=== PATIENT | female | born 1955 | race Caucasian/White ===

== ENCOUNTER 2021-04-08 02:09 | Inpatient (IN) | payer BC ==
[~2021-04-08] VITALS: Ht 154.9 cm; Wt 121.6 kg
--- NOTE | 2021-04-08 02:33 | NUR ---
PT BIB EMS FROM [facility]. PT FELL AT HOME AND HAS RIGHT TIBIA FX AND LEFT SHOULDER FX. AND TROPS WERE ELEVATED AT 0.19- PT STARTED ON HEPARIN DRIP. 2,000 UNITS PER HOUR WITH 5,000 UNIT BOLUS GIVEN. PT ALSO GIVEN 40 OF LASIX AND 1 LITER NS, AND 325 ASPRIN. HEPARIN DRIP RESUMED AT 2000 UNITS PER HOUR, OK PER ERP, AND EKG AT BEDSIDE
--- NOTE | 2021-04-08 02:45 | NUR ---
PER ERP, HOLD HEPARIN DRIP AT THIS TIME.
--- NOTE | 2021-04-08 03:01 | NUR ---
Report received from ALLISON Salgado. This RN to assume care.
--- NOTE | 2021-04-08 03:15 | NUR ---
Patient asking for ; states he might be in the waiting room. Attempted to call him in the waiting room but no answer.
[2021-04-08 03:26] LABS: TROPONIN I 0.109 ng/mL (0.000-0.045)
--- NOTE | 2021-04-08 04:00 | NUR ---
Patient sleeping in gurney. Respirations even and unlabored.
--- NOTE | 2021-04-08 06:01 | NUR ---
Bill - [phone] Spoke with patient's , Roc, over the phone. He states he is leaving [place] right now and will be here in a couple hours. Patient notified.
[2021-04-08] MEDS ORDERED: DOCUSATE 100 MG CAPSULE PO PRN (06:30)
[2021-04-08] MEDS ORDERED: ONDANSETRON 2MG/ML, 2ML IVPush PRN (06:30)
[2021-04-08] MEDS ORDERED: LORazepam 2 MG/ML, 1ML IVPush PRN (06:30)
[2021-04-08] MEDS ORDERED: TEMAZEPAM 15 MG CAPSULE PO PRN (06:30)
[2021-04-08] MEDS ORDERED: ACETAMINOPHEN 325 MG TABLET PO PRN (06:30)
[2021-04-08] MEDS ORDERED: POLYETHYLENE GLYCOL 17 GM PACKET PO PRN (06:30)
[2021-04-08] MEDS ORDERED: BISACODYL 10 MG SUPP PR PRN (06:30)
[2021-04-08] MEDS ORDERED: MORPHINE SULFATE 4 MG/ML, 1ML IVPush PRN (06:30)
[2021-04-08] MEDS: NYSTATIN TOPICAL POWDER 15GM TP SCH ×4 (06:30→20:23)
[2021-04-08] MEDS ORDERED: hydrALAzine 20 MG/ML, 1ML IVPush PRN (06:30)
[2021-04-08] MEDS ORDERED: MELATONIN 5 MG TABLET PO PRN (06:30)
[2021-04-08 06:46] LABS: CHOLESTEROL, TOTAL 50 mg/dL (140-239); TRIGLYCERIDES 94 mg/dL (50-200); VLDL CHOLESTEROL 19 mg/dL (0-25)
[2021-04-08 06:56] LABS: CHOL/HDL RATIO 3.1; HDL CHOL % 32 % (28-40); HDL CHOLESTEROL (DIRECT) 16 mg/dL (40-60); LDL CHOLESTEROL,CALCULATED 15 mg/dL (54-169); LDL/HDL RATIO 0.9 (0.5-3.0); TROPONIN I 0.097 ng/mL (0.000-0.045)
[2021-04-08 07:00] LABS: BASOPHILS % (AUTO) 1 % (0-1); EOSINOPHILS % (AUTO) 0 % (1-7); LYMPHOCYTES % (AUTO) 13 % (22-44); MEAN CORPUSCULAR HEMOGLOBIN 20.5 pg (27.0-34.8); MEAN PLATELET VOLUME 8.7 fL (7.4-10.4); MONOCYTES % (AUTO) 8 % (2-9); NEUTROPHILS % (AUTO) 78 % (42-75); PLATELET COUNT 411 x10^3/uL (130-400); RED BLOOD COUNT 4.14 x10^6/uL (3.82-5.3); RED CELL DISTRIBUTION WIDTH 25.7 % (9.6-15.2)
--- NOTE | 2021-04-08 07:05 | NUR ---
Report given to ALLISON Carver. Patient to be transferred to room 510-2.
[2021-04-08 07:13] LABS: ALANINE AMINOTRANSFERASE 145 U/L (12-78); ALBUMIN 2.8 g/dL (3.4-5.0); ANION GAP 10 mmol/L (5-15); CALCIUM 8.7 mg/dL (8.5-10.1); CHLORIDE 105 mmol/L (98-107); CREATININE 1.21 mg/dL (0.55-1.02); IRON LEVEL 16 mcg/dL (50-170)
[2021-04-08 07:16] LABS: % IRON SATURATION 5 % (20-55); ALKALINE PHOSPHATASE 208 U/L (45-117); BILIRUBIN,TOTAL 1.5 mg/dL (0.2-1.0); TOTAL IRON BINDING CAPACITY 296 mcg/dL (250-450); TOTAL PROTEIN 6.4 g/dL (6.4-8.2)
[2021-04-08 07:25] LABS: ACANTHOCYTES 2+; ANISOCYTOSIS 2+; ECHINOCYTES 1+; HYPOCHROMIA 1+; MICROCYTOSIS 2+; POLYCHROMASIA 1+
[2021-04-08 07:26] LABS: <PLATELET ESTIMATE> INCREASED; <PLT MORPHOLOGY> NORMAL PLT MORPH; SCHISTOCYTES 1+
[2021-04-08 07:27] LABS: OVALOCYTES 1+
[2021-04-08 07:45] VITALS: BP 174/100
[2021-04-08] MEDS ORDERED: metFORMIN 500 MG TABLET PO SCH (08:00)
[2021-04-08] MEDS: INSULIN LISPRO 100 UNITS/ML, PEN SQ-INSULIN SCH ×4 (08:13→20:22)
[2021-04-08 08:16] VITALS: BP 174/100
[2021-04-08] MEDS ORDERED: FAMOTIDINE 20 MG TABLET PO SCH (09:00)
[2021-04-08] MEDS ORDERED: GABAPENTIN 300 MG CAPSULE PO SCH ×2 (09:00→12:00)
[2021-04-08] MEDS ORDERED: FLUOXETINE HCL 20 MG CAPSULE PO SCH ×3 (09:00→12:59)
[2021-04-08] MEDS ORDERED: LISINOPRIL 20 MG TABLET PO SCH (09:00)
[2021-04-08] MEDS ORDERED: FAMOTIDINE 40 MG TABLET ONE (10:21)
[2021-04-08] MEDS: HEPARIN 5,000 UNITS/ML, 1ML SQ SCH ×3 (10:31→22:07)
[2021-04-08] MEDS ORDERED: ATOR-2 PO (10:57)
[2021-04-08] MEDS ORDERED: NEBI5TAB2 PO (10:57)
[2021-04-08] MEDS ORDERED: GABA-826 PO (10:57)
[2021-04-08] MEDS ORDERED: LISI40TA9 PO (10:57)
[2021-04-08] MEDS ORDERED: FURO20TA3 PO (10:57)
[2021-04-08] MEDS ORDERED: METH-640 PO (10:57)
[2021-04-08] MEDS ORDERED: FLUO20TA25 PO (10:57)
[2021-04-08] MEDS ORDERED: ICOS1CAP PO (10:57)
[2021-04-08] MEDS ORDERED: METF500T17 PO (10:57)
[2021-04-08] MEDS ORDERED: OMEP20TA9 PO (10:57)
[2021-04-08] MEDS ORDERED: OMEPRAZOLE 20 MG CAPSULE.DR PO SCH (12:00)
[2021-04-08] MEDS ORDERED: METHOCARBAMOL 750 MG TABLET PO PRN ×2 (12:00→12:55)
[2021-04-08] MEDS ORDERED: NEBIVOLOL HCL 5 MG TABLET PO SCH (12:00)
[2021-04-08] MEDS ORDERED: FUROSEMIDE 20 MG TABLET PO SCH ×2 (12:00→12:54)
[2021-04-08] MEDS ORDERED: LISINOPRIL 40 MG TABLET PO SCH ×2 (12:00→12:50)
[2021-04-08] MEDS: OXYcodone IR 5MG TABLET PO PRN ×2 (12:10→18:25)
[2021-04-08] MEDS ORDERED: OMEPRAZOLE 40 MG PO SCH (13:00)
[2021-04-08] MEDS ORDERED: PROZAC 20 MG PO SCH (13:00)
[2021-04-08] MEDS ORDERED: FUROSEMIDE 20 MG PO SCH (13:00)
[2021-04-08] MEDS ORDERED: METHOCARBAMOL 750 MG PO PRN (13:00)
[2021-04-08] MEDS: ASPIRIN 81 MG TABLET CHEW PO SCH (13:21)
[2021-04-08] MEDS: BYSTOLIC 10 MG PO SCH (13:22)
[2021-04-08] MEDS: Gabapentin 600 MG TABLET PO SCH ×2 (13:22→20:21)
[2021-04-08] MEDS: FUROSEMIDE 20 MG TABLET PO SCH (13:33)
[2021-04-08] MEDS: LISINOPRIL 40 MG TABLET PO SCH (13:33)
[2021-04-08] MEDS: FLUOXETINE HCL 20 MG CAPSULE PO SCH (13:33)
[2021-04-08 13:35] VITALS: BP 131/87
[2021-04-08 14:27] LABS: TROPONIN I 0.089 ng/mL (0.000-0.045)
[2021-04-08] MEDS: IRON SUCROSE COMPLEX 100MG/5ML IV SCH (18:27)
[2021-04-08] MEDS: ATORVASTATIN 80 MG TABLET PO SCH (20:21)
[2021-04-08] MEDS: INSULIN GLARGINE 100 UNITS/ML, PEN SQ-INSULIN SCH (20:22)
[2021-04-08] MEDS ORDERED: LIPITOR 80 MG PO SCH (21:00)
[2021-04-08 21:23] VITALS: BP 177/98
[2021-04-08 21:40] VITALS: BP 150/95
[2021-04-08 22:45] LABS: TROPONIN I 0.076 ng/mL (0.000-0.045)
[2021-04-09 01:36] VITALS: BP 171/90
[2021-04-09 01:55] VITALS: BP 155/87
[2021-04-09 04:19] LABS: MEAN CORPUSCULAR HEMOGLOBIN 20.9 pg (27.0-34.8); MEAN CORPUSCULAR HGB CONC 30.4 g/dL (32.4-35.8); MEAN PLATELET VOLUME 8.7 fL (7.4-10.4); PLATELET COUNT 397 x10^3/uL (130-400); RED BLOOD COUNT 4.09 x10^6/uL (3.82-5.3); RED CELL DISTRIBUTION WIDTH 25.6 % (9.6-15.2)
[2021-04-09 04:28] LABS: ANION GAP 6 mmol/L (5-15); CALCIUM 8.6 mg/dL (8.5-10.1); CHLORIDE 104 mmol/L (98-107); CREATININE 1.12 mg/dL (0.55-1.02)
[2021-04-09 05:49] LABS: ACANTHOCYTES 2+; ANISOCYTOSIS 2+; ECHINOCYTES 1+; HYPOCHROMIA 1+; LYMPH#(MANUAL) 0.82 x10^3/uL (1-3.4); LYMPHS% (MANUAL) 8 % (22-44); MICROCYTOSIS 2+; MONOS#(MANUAL) 0.21 x10^3/uL (0.3-2.7); MONOS% (MANUAL) 2 % (2-9); OVALOCYTES 1+; POLYCHROMASIA 1+; SEG#(MANUAL) 9.27 x10^3/uL (1.8-6.8); SEGS% (MANUAL) 90 % (42-75)
[2021-04-09 05:50] LABS: <PLATELET ESTIMATE> ADEQUATE; <PLT MORPHOLOGY> NORMAL PLT MORPH; SCHISTOCYTES 1+; TEAR DROPS 1+
[2021-04-09] MEDS: NYSTATIN TOPICAL POWDER 15GM TP SCH ×4 (06:00→21:26)
[2021-04-09] MEDS: HEPARIN 5,000 UNITS/ML, 1ML SQ SCH ×3 (06:02→21:24)
[2021-04-09] MEDS ORDERED: REGADENOSON 0.4 MG/5 ML SYRINGE ONE (08:09)
[2021-04-09] MEDS: INSULIN LISPRO 100 UNITS/ML, PEN SQ-INSULIN SCH ×4 (08:27→21:31)
[2021-04-09 09:00] VITALS: BP 131/77
[2021-04-09] MEDS: IRON SUCROSE COMPLEX 100MG/5ML IV SCH (11:45)
[2021-04-09] MEDS: ASPIRIN 81 MG TABLET CHEW PO SCH (11:45)
[2021-04-09] MEDS: LISINOPRIL 40 MG TABLET PO SCH (11:51)
[2021-04-09] MEDS: Gabapentin 600 MG TABLET PO SCH ×3 (11:51→21:00)
[2021-04-09] MEDS: FUROSEMIDE 20 MG TABLET PO SCH (11:51)
[2021-04-09] MEDS: OMEPRAZOLE 20 MG CAPSULE.DR PO SCH (11:51)
[2021-04-09] MEDS: BYSTOLIC 10 MG PO SCH (11:51)
[2021-04-09] MEDS: FLUOXETINE HCL 20 MG CAPSULE PO SCH (11:52)
[2021-04-09] MEDS: OXYcodone IR 5MG TABLET PO PRN ×2 (11:57→18:24)
[2021-04-09 13:56] VITALS: BP 134/73
[2021-04-09] MEDS ORDERED: POTASSIUM CHLORIDE 20 MEQ TAB.ER.PRT PO SCH (17:00)
[2021-04-09] MEDS: FUROSEMIDE 20 MG/2 ML IV SCH (18:13)
[2021-04-09 19:35] VITALS: BP 138/83
[2021-04-09] MEDS: INSULIN GLARGINE 100 UNITS/ML, PEN SQ-INSULIN SCH (21:36)
[2021-04-09] MEDS: ATORVASTATIN 80 MG TABLET PO SCH (21:36)
[2021-04-10 01:30] VITALS: BP 132/82
[2021-04-10 05:24] LABS: BASOPHILS % (AUTO) 1 % (0-1); EOSINOPHILS % (AUTO) 1 % (1-7); LYMPHOCYTES % (AUTO) 15 % (22-44); MEAN CORPUSCULAR HEMOGLOBIN 21.1 pg (27.0-34.8); MEAN CORPUSCULAR HGB CONC 30.7 g/dL (32.4-35.8); MEAN PLATELET VOLUME 8.7 fL (7.4-10.4); MONOCYTES % (AUTO) 11 % (2-9); NEUTROPHILS % (AUTO) 72 % (42-75); PLATELET COUNT 382 x10^3/uL (130-400)
[2021-04-10 05:26] LABS: CHLORIDE 103 mmol/L (98-107)
[2021-04-10] MEDS: NYSTATIN TOPICAL POWDER 15GM TP SCH ×4 (05:28→22:20)
[2021-04-10 05:33] LABS: ANION GAP 4 mmol/L (5-15); CALCIUM 8.4 mg/dL (8.5-10.1); CREATINE KINASE, TOTAL 77 U/L (26-192); CREATININE 1.11 mg/dL (0.55-1.02)
[2021-04-10] MEDS: HEPARIN 5,000 UNITS/ML, 1ML SQ SCH ×3 (06:35→22:14)
[2021-04-10 06:58] VITALS: BP 140/84
[2021-04-10] MEDS: INSULIN LISPRO 100 UNITS/ML, PEN SQ-INSULIN SCH ×4 (07:50→21:00)
[2021-04-10] MEDS: POTASSIUM CHLORIDE 20 MEQ TAB.ER.PRT PO SCH ×2 (10:13→17:35)
[2021-04-10] MEDS: FUROSEMIDE 20 MG/2 ML IV SCH ×2 (10:13→17:35)
[2021-04-10] MEDS: OXYcodone IR 5MG TABLET PO PRN ×3 (10:13→22:14)
[2021-04-10] MEDS: IRON SUCROSE COMPLEX 100MG/5ML IV SCH (10:14)
[2021-04-10] MEDS: Gabapentin 600 MG TABLET PO SCH ×3 (10:18→21:00)
[2021-04-10] MEDS: LISINOPRIL 40 MG TABLET PO SCH (10:18)
[2021-04-10] MEDS: OMEPRAZOLE 20 MG CAPSULE.DR PO SCH (10:18)
[2021-04-10] MEDS: BYSTOLIC 10 MG PO SCH (10:18)
[2021-04-10] MEDS: FLUOXETINE HCL 20 MG CAPSULE PO SCH (10:18)
[2021-04-10] MEDS: ASPIRIN 81 MG TABLET CHEW PO SCH (10:18)
[2021-04-10 12:41] VITALS: BP 125/77
[2021-04-10 19:32] VITALS: BP 114/75
[2021-04-10] MEDS: INSULIN GLARGINE 100 UNITS/ML, PEN SQ-INSULIN SCH (22:13)
[2021-04-10] MEDS: ATORVASTATIN 80 MG TABLET PO SCH (22:13)
[2021-04-11 00:22] VITALS: BP 125/80
[2021-04-11] MEDS: HEPARIN 5,000 UNITS/ML, 1ML SQ SCH ×3 (05:39→20:56)
[2021-04-11] MEDS: NYSTATIN TOPICAL POWDER 15GM TP SCH ×4 (05:40→20:56)
[2021-04-11 06:05] LABS: BASOPHILS % (AUTO) 1 % (0-1); EOSINOPHILS % (AUTO) 1 % (1-7); LYMPHOCYTES % (AUTO) 20 % (22-44); MEAN CORPUSCULAR HEMOGLOBIN 21.2 pg (27.0-34.8); MEAN CORPUSCULAR HGB CONC 30.4 g/dL (32.4-35.8); MEAN PLATELET VOLUME 8.7 fL (7.4-10.4); MONOCYTES % (AUTO) 11 % (2-9); NEUTROPHILS % (AUTO) 67 % (42-75); PLATELET COUNT 404 x10^3/uL (130-400); RED BLOOD COUNT 3.95 x10^6/uL (3.82-5.3); RED CELL DISTRIBUTION WIDTH 25.9 % (9.6-15.2)
[2021-04-11 06:08] LABS: CALCIUM 8.4 mg/dL (8.5-10.1); CHLORIDE 103 mmol/L (98-107)
[2021-04-11 06:14] LABS: ALANINE AMINOTRANSFERASE 107 U/L (12-78); ALBUMIN 2.7 g/dL (3.4-5.0); ALKALINE PHOSPHATASE 324 U/L (45-117); ANION GAP 4 mmol/L (5-15); BILIRUBIN,TOTAL 1.9 mg/dL (0.2-1.0); CREATININE 1.14 mg/dL (0.55-1.02); TOTAL PROTEIN 6.3 g/dL (6.4-8.2)
[2021-04-11] MEDS: INSULIN LISPRO 100 UNITS/ML, PEN SQ-INSULIN SCH ×4 (07:00→21:00)
[2021-04-11 07:27] VITALS: BP 125/74
[2021-04-11] MEDS: ASPIRIN 81 MG TABLET CHEW PO SCH (08:33)
[2021-04-11] MEDS: OXYcodone IR 5MG TABLET PO PRN ×2 (08:33→20:56)
[2021-04-11] MEDS: POTASSIUM CHLORIDE 20 MEQ TAB.ER.PRT PO SCH ×2 (08:33→16:29)
[2021-04-11] MEDS: Gabapentin 600 MG TABLET PO SCH ×3 (08:34→20:56)
[2021-04-11] MEDS: OMEPRAZOLE 20 MG CAPSULE.DR PO SCH (08:34)
[2021-04-11] MEDS: BYSTOLIC 10 MG PO SCH (08:34)
[2021-04-11] MEDS: FLUOXETINE HCL 20 MG CAPSULE PO SCH (08:34)
[2021-04-11] MEDS: LISINOPRIL 40 MG TABLET PO SCH (08:34)
[2021-04-11] MEDS: FUROSEMIDE 40 MG/4 ML IV SCH ×2 (08:35→16:25)
[2021-04-11] MEDS: ALBUMIN HUMAN 25% 100 ML IV SCH ×2 (09:23→16:25)
[2021-04-11 13:30] VITALS: BP 132/75
[2021-04-11 18:40] VITALS: BP_SYST 137; BP_SYST 94; BP_DIAS 59; BP_DIAS 81
[2021-04-11] MEDS: ATORVASTATIN 80 MG TABLET PO SCH (20:55)
[2021-04-11] MEDS: INSULIN GLARGINE 100 UNITS/ML, PEN SQ-INSULIN SCH (21:21)
[2021-04-12 01:21] VITALS: BP 147/79
[2021-04-12 05:08] LABS: MEAN CORPUSCULAR HEMOGLOBIN 21.9 pg (27.0-34.8); MEAN CORPUSCULAR HGB CONC 30.5 g/dL (32.4-35.8); MEAN PLATELET VOLUME 8.6 fL (7.4-10.4); PLATELET COUNT 395 x10^3/uL (130-400); RED BLOOD COUNT 3.84 x10^6/uL (3.82-5.3); RED CELL DISTRIBUTION WIDTH 25.7 % (9.6-15.2)
[2021-04-12 05:20] LABS: ALANINE AMINOTRANSFERASE 80 U/L (12-78); ALBUMIN 3.3 g/dL (3.4-5.0); ANION GAP 6 mmol/L (5-15); CALCIUM 8.6 mg/dL (8.5-10.1); CHLORIDE 101 mmol/L (98-107)
[2021-04-12 05:22] LABS: ALKALINE PHOSPHATASE 340 U/L (45-117); BILIRUBIN,TOTAL 2.4 mg/dL (0.2-1.0); CREATININE 1.18 mg/dL (0.55-1.02); TOTAL PROTEIN 6.8 g/dL (6.4-8.2)
[2021-04-12] MEDS: NYSTATIN TOPICAL POWDER 15GM TP SCH ×4 (05:29→21:14)
[2021-04-12] MEDS: HEPARIN 5,000 UNITS/ML, 1ML SQ SCH ×2 (05:29→14:44)
[2021-04-12 06:10] LABS: ANISOCYTOSIS 1+; EOS#(MANUAL) 0.19 x10^3/uL (0.0-0.4); EOS% (MANUAL) 2 % (1-7); HYPOCHROMIA 1+; LYMPH#(MANUAL) 1.79 x10^3/uL (1-3.4); LYMPHS% (MANUAL) 19 % (22-44); MICROCYTOSIS 1+; MONOS#(MANUAL) 0.38 x10^3/uL (0.3-2.7); MONOS% (MANUAL) 4 % (2-9); POLYCHROMASIA 1+; SEG#(MANUAL) 7.05 x10^3/uL (1.8-6.8); SEGS% (MANUAL) 75 % (42-75)
[2021-04-12 06:11] LABS: ECHINOCYTES 1+; OVALOCYTES 1+; SCHISTOCYTES 1+; TEAR DROPS 1+
[2021-04-12 06:12] LABS: <PLATELET ESTIMATE> ADEQUATE; <PLT MORPHOLOGY> NORMAL PLT MORPH; ACANTHOCYTES 1+
[2021-04-12] MEDS: INSULIN LISPRO 100 UNITS/ML, PEN SQ-INSULIN SCH ×4 (06:59→21:00)
[2021-04-12 07:50] VITALS: BP 156/87
[2021-04-12] MEDS: FUROSEMIDE 40 MG/4 ML IV SCH ×2 (08:09→16:16)
[2021-04-12] MEDS: BYSTOLIC 10 MG PO SCH (08:09)
[2021-04-12] MEDS: POTASSIUM CHLORIDE 20 MEQ TAB.ER.PRT PO SCH ×2 (08:09→16:16)
[2021-04-12] MEDS: ASPIRIN 81 MG TABLET CHEW PO SCH (08:09)
[2021-04-12] MEDS: OMEPRAZOLE 20 MG CAPSULE.DR PO SCH (08:10)
[2021-04-12] MEDS: Gabapentin 600 MG TABLET PO SCH ×3 (08:10→21:00)
[2021-04-12] MEDS: FLUOXETINE HCL 20 MG CAPSULE PO SCH (08:10)
[2021-04-12] MEDS: LISINOPRIL 40 MG TABLET PO SCH (08:10)
[2021-04-12] MEDS: OXYcodone IR 5MG TABLET PO PRN ×3 (08:19→21:12)
[2021-04-12 12:53] VITALS: BP 135/78
[2021-04-12 20:34] VITALS: BP 127/72
[2021-04-12] MEDS: ATORVASTATIN 80 MG TABLET PO SCH (21:00)
[2021-04-12] MEDS: INSULIN GLARGINE 100 UNITS/ML, PEN SQ-INSULIN SCH (21:15)
[2021-04-13] MEDS: HEPARIN 5,000 UNITS/ML, 1ML SQ SCH ×3 (00:26→16:24)
[2021-04-13 01:22] VITALS: BP 104/66
[2021-04-13] MEDS: NYSTATIN TOPICAL POWDER 15GM TP SCH ×4 (05:38→21:00)
[2021-04-13 06:07] LABS: BASOPHILS % (AUTO) 1 % (0-1); EOSINOPHILS % (AUTO) 2 % (1-7); LYMPHOCYTES % (AUTO) 18 % (22-44); MEAN CORPUSCULAR HEMOGLOBIN 22.5 pg (27.0-34.8); MEAN CORPUSCULAR HGB CONC 31.2 g/dL (32.4-35.8); MEAN PLATELET VOLUME 9.1 fL (7.4-10.4); MONOCYTES % (AUTO) 11 % (2-9); NEUTROPHILS % (AUTO) 68 % (42-75); PLATELET COUNT 386 x10^3/uL (130-400); RED BLOOD COUNT 3.65 x10^6/uL (3.82-5.3); RED CELL DISTRIBUTION WIDTH 25.9 % (9.6-15.2)
[2021-04-13 06:15] LABS: ALANINE AMINOTRANSFERASE 60 U/L (12-78); ALBUMIN 2.9 g/dL (3.4-5.0); ANION GAP 6 mmol/L (5-15); CALCIUM 9.1 mg/dL (8.5-10.1); CHLORIDE 103 mmol/L (98-107); CREATININE 1.19 mg/dL (0.55-1.02)
[2021-04-13 06:17] LABS: ALKALINE PHOSPHATASE 314 U/L (45-117); BILIRUBIN,TOTAL 2.3 mg/dL (0.2-1.0); TOTAL PROTEIN 6.4 g/dL (6.4-8.2)
[2021-04-13] MEDS: INSULIN LISPRO 100 UNITS/ML, PEN SQ-INSULIN SCH ×4 (07:00→20:59)
[2021-04-13 07:35] VITALS: BP 136/81
[2021-04-13] MEDS: POTASSIUM CHLORIDE 20 MEQ TAB.ER.PRT PO SCH ×2 (08:26→16:34)
[2021-04-13] MEDS: ASPIRIN 81 MG TABLET CHEW PO SCH (08:26)
[2021-04-13] MEDS: LISINOPRIL 40 MG TABLET PO SCH (08:26)
[2021-04-13] MEDS: Gabapentin 600 MG TABLET PO SCH ×3 (08:27→20:58)
[2021-04-13] MEDS: FLUOXETINE HCL 20 MG CAPSULE PO SCH (08:27)
[2021-04-13] MEDS: OMEPRAZOLE 20 MG CAPSULE.DR PO SCH (08:27)
[2021-04-13] MEDS: BYSTOLIC 10 MG PO SCH (08:27)
[2021-04-13] MEDS ORDERED: FERROUS SULFATE 325 MG TABLET PO SCH (09:00)
[2021-04-13] MEDS: OXYcodone IR 5MG TABLET PO PRN ×2 (10:17→21:00)
[2021-04-13] MEDS: FUROSEMIDE 40 MG/4 ML IV SCH ×2 (10:19→16:34)
[2021-04-13] MEDS ORDERED: FUROSEMIDE 40 MG/4 ML ONE (10:21)
[2021-04-13 13:15] VITALS: BP 112/65
[2021-04-13] MEDS ORDERED: FUROSEMIDE 40 MG/4 ML IV SCH (17:00)
[2021-04-13 20:20] VITALS: BP 116/69
[2021-04-13] MEDS: ATORVASTATIN 80 MG TABLET PO SCH (20:58)
[2021-04-13] MEDS: INSULIN GLARGINE 100 UNITS/ML, PEN SQ-INSULIN SCH (20:59)
[2021-04-14] MEDS: HEPARIN 5,000 UNITS/ML, 1ML SQ SCH ×2 (00:06→09:26)
[2021-04-14 01:07] VITALS: BP 122/75
[2021-04-14] MEDS: NYSTATIN TOPICAL POWDER 15GM TP SCH ×2 (05:11→11:29)
[2021-04-14 05:41] LABS: ALBUMIN 2.8 g/dL (3.4-5.0); ANION GAP 4 mmol/L (5-15); CALCIUM 9.2 mg/dL (8.5-10.1); CHLORIDE 101 mmol/L (98-107)
[2021-04-14 05:42] LABS: BASOPHILS % (AUTO) 1 % (0-1); EOSINOPHILS % (AUTO) 2 % (1-7); LYMPHOCYTES % (AUTO) 16 % (22-44); MEAN CORPUSCULAR HEMOGLOBIN 22.6 pg (27.0-34.8); MEAN CORPUSCULAR HGB CONC 31.3 g/dL (32.4-35.8); MONOCYTES % (AUTO) 12 % (2-9); NEUTROPHILS % (AUTO) 68 % (42-75); PLATELET COUNT 345 x10^3/uL (130-400); RED BLOOD COUNT 3.63 x10^6/uL (3.82-5.3); RED CELL DISTRIBUTION WIDTH 25.7 % (9.6-15.2)
[2021-04-14 05:44] LABS: ALANINE AMINOTRANSFERASE 55 U/L (12-78); ALKALINE PHOSPHATASE 298 U/L (45-117); BILIRUBIN,TOTAL 2.1 mg/dL (0.2-1.0); CREATININE 1.25 mg/dL (0.55-1.02); TOTAL PROTEIN 6.3 g/dL (6.4-8.2)
[2021-04-14 06:18] LABS: <PLATELET ESTIMATE> ADEQUATE; <PLT MORPHOLOGY> NORMAL PLT MORPH; ACANTHOCYTES 1+; ANISOCYTOSIS 2+; ECHINOCYTES 1+; MICROCYTOSIS 1+; OVALOCYTES 1+; POLYCHROMASIA 1+; SCHISTOCYTES 1+; TEAR DROPS 1+
[2021-04-14 06:21] LABS: HYPOCHROMIA 2+
[2021-04-14 06:43] VITALS: BP 134/78
[2021-04-14] MEDS: INSULIN LISPRO 100 UNITS/ML, PEN SQ-INSULIN SCH ×2 (07:00→11:29)
[2021-04-14] MEDS: FUROSEMIDE 40 MG/4 ML IV SCH (07:38)
[2021-04-14] MEDS ORDERED: FUROSEMIDE 20 MG TABLET PO SCH (08:00)
[2021-04-14] MEDS: BYSTOLIC 10 MG PO SCH (09:00)
[2021-04-14] MEDS: Gabapentin 600 MG TABLET PO SCH (09:00)
[2021-04-14] MEDS: POTASSIUM CHLORIDE 20 MEQ TAB.ER.PRT PO SCH (09:26)
[2021-04-14] MEDS: LISINOPRIL 40 MG TABLET PO SCH (09:27)
[2021-04-14] MEDS: ASPIRIN 81 MG TABLET CHEW PO SCH (09:27)
[2021-04-14] MEDS: FLUOXETINE HCL 20 MG CAPSULE PO SCH (09:27)
[2021-04-14] MEDS: OMEPRAZOLE 20 MG CAPSULE.DR PO SCH (09:27)
[2021-04-14] MEDS ORDERED: INSU100I13 SQ-INSULIN (09:32)
[2021-04-14] MEDS ORDERED: ASPI-963 PO (09:32)
[2021-04-14] MEDS ORDERED: INSU100I11 SQ-INSULIN (09:32)
[2021-04-14] MEDS ORDERED: FERR-36 PO (09:32)
[2021-04-14] MEDS ORDERED: FURO20TA3 PO (09:32)
[2021-04-14] MEDS ORDERED: NYST15PO2 TP (09:32)
[2021-04-14] MEDS: OXYcodone IR 5MG TABLET PO PRN (09:58)
== END 2021-04-14 16:20 | DRG 280 ==
LOC: ED 04:16 → EDIP 06:04 → 5SO 07:32
PROVIDERS: ADMIT Internal Medicine; ATTEND Family Medicine
PROC: 2W39XYZ Immobilization of Left Upper Extremity using Other Device (ICD-10-PCS; principal; 2021-04-08)
PROC: 2W3LX1Z Immobilization of Right Lower Extremity using Splint (ICD-10-PCS; 2021-04-08)
DX: I13.0 Hypertensive heart and chronic kidney disease with heart failure and stage 1 through stage 4 chronic kidney disease, or unspecified chronic kidney disease (principal); I21.A1 Myocardial infarction type 2; I50.33 Acute on chronic diastolic (congestive) heart failure; S42.292A Other displaced fracture of upper end of left humerus, initial encounter for closed fracture; S42.212A Unspecified displaced fracture of surgical neck of left humerus, initial encounter for closed fracture; J96.11 Chronic respiratory failure with hypoxia; D50.9 Iron deficiency anemia, unspecified; E11.22 Type 2 diabetes mellitus with diabetic chronic kidney disease; E11.42 Type 2 diabetes mellitus with diabetic polyneuropathy; E66.01 Morbid (severe) obesity due to excess calories; E78.5 Hyperlipidemia, unspecified; G89.11 Acute pain due to trauma; I25.10 Atherosclerotic heart disease of native coronary artery without angina pectoris; J44.9 Chronic obstructive pulmonary disease, unspecified; L30.4 Erythema intertrigo; N18.30 Chronic kidney disease, stage 3 unspecified; W18.39XA Other fall on same level, initial encounter; R29.6 Repeated falls; Z66 Do not resuscitate; S82.301A Unspecified fracture of lower end of right tibia, initial encounter for closed fracture; S82.61XA Displaced fracture of lateral malleolus of right fibula, initial encounter for closed fracture; R26.89 Other abnormalities of gait and mobility; R53.81 Other malaise; Z95.5 Presence of coronary angioplasty implant and graft; Y93.89 Activity, other specified; Y92.098 Other place in other non-institutional residence as the place of occurrence of the external cause; Y99.8 Other external cause status
CPT/HCPCS: 36415; 73060; 73600; 73610; 93017; 96374; 99285; C8929; 78452; 80048; 80053; 80061; 82550; 82728; 82962; 83036; 83540; 83550; 83735; 84100; 84443; 84484; 85025; 93005; G0378; J1644; J1756; J1940; J2405; J2785; P9047; Q9957; A9502; J0360; J1815; J2270